=== PATIENT | female | born 1955 | race Caucasian/White ===

== ENCOUNTER 2018-07-15 19:28 | Emergency (ER) | payer MEDICARE ==
--- NOTE | 2018-07-15 19:38 | EDM.PDOC ---
ED HPI GENERAL MEDICAL PROBLEM - General Chief Complaint: Gastrointestinal Problem Stated Complaint: hemorrhoids Time Seen by Provider: 07/15/18 19:30 Source of Information: Reports: Patient, Family ([id number]), Old Records ( [facility] chart/EMR) History Limitations: Reports: No Limitations - History of Present Illness INITIAL COMMENTS - FREE TEXT/NARRATIVE: The patient was brought to the emergency room via private automobile by her [id number] for evaluation of 10/10 hemorrhoidal pain, which is refractory to to current medical therapy. She has had these hemorrhoids for more than a year with additional problems with chronic diarrhea during the last couple of years. She has been somewhat noncompliant with her routine medical care with distant EGD and colonoscopy as below and no previous workup for her chronic diarrhea. No recent history of abdominal pain, heartburn, nausea, melena, or any food intolerance, including fatty foods, etc., although occasional gross hematochezia secondary to her hemorrhoids. She is currently having about 10 bowel movements per day with additional problems with stool incontinence. The patient denies any chest pain/pressure, heart flutter, dizziness, orthostasis, orthopnea, diaphoresis, paresthesias, recent decreased exercise tolerance, or any other anginal-type symptoms. She denies any current gross hematuria, colic, or other UTI symptoms. The patient also denies any recent fever, significant cough, wheezing, dyspnea, etc.. Onset: Unknown/Unsure, Other (As above) Duration: Constant, Getting Worse Location: Denies: Head, Face, Neck, Chest, Abdomen, Back, Pelvis, Upper Extremity, Left, Upper Extremity, Right, Radiates to Quality: Reports: Same as Previous Episode, Sharp, Throbbing Severity: Severe Improves with: Reports: None Worsens with: Reports: None Context: Reports: Other (As above). Denies: Sick Contact, Trauma Associated Symptoms: Denies: Confusion, Chest Pain, Cough, Diaphoresis, Headaches, Loss of Appetite, Malaise, Nausea/Vomiting, Rash, Seizure, Shortness of Breath, Syncope, Weakness Treatments QUALITY SUPERVISOR: Reports: NSAIDS (As above), Other Medication(s) (As above) Rectal Pain Score (Numeric/FACES): 10 - Related Data Allergies Allergy/AdvReac Type Severity Reaction Status Date / Time beclomethasone Allergy Chest Verified 07/15/18 19:57 Presssure cyclobenzaprine Allergy Edema Verified 07/15/18 19:57 latex Allergy Redness Verified 07/15/18 19:57 lidocaine Allergy Anaphylactic Verified 07/15/18 19:57 Shock loperamide Allergy Rash Verified 07/15/18 19:57 peanut Allergy Throat Verified 07/15/18 19:57 swelling Sulfa (Sulfonamide Allergy Anaphylactic Verified 07/15/18 19:57 Antibiotics) Shock sumatriptan Allergy Nausea Verified 07/15/18 19:57 casting material fiberglass Allergy Edema Uncoded 07/15/18 19:57 METALS Allergy Itching Uncoded 07/15/18 19:57 Home Meds: Home Meds Sertraline HCl 200 mg PO QAM 03/26/13 [History] Levothyroxine [Synthroid] 50 mcg PO DAILY 10/15/14 [History] Albuterol/Ipratropium [DuoNeb 3.0-0.5 MG/3 ML] 3 ml NEB Q6HRRT PRN 11/08/14 [ History] Furosemide 20 mg PO BID 01/27/16 [History] Albuterol Sulfate [Proair Hfa] 2 puff INH Q6H PRN 01/14/17 [History] Doxepin HCl 150 mg PO BEDTIME 01/14/17 [History] Multivitamin [Multi-Vitamin Daily] 1 tab PO DAILY 01/14/17 [History] Hydrocortisone [Hydrocortisone 2.5% Crm] 1 applic RECTAL ASDIRECTED 07/15/18 [ History] Hydrocortisone [Preparation H] 1 applic PO ASDIRECTED 07/15/18 [History] Past Medical History HEENT History: Reports: Allergic Rhinitis, Cataract, Impaired Vision, Sinusitis , Other (See Below). Denies: Glaucoma, Hard of Hearing, Macular Degeneration, Retinal Detachment Other HEENT History: Patient wears reading glasses. Cardiovascular History: Reports: Other (See Below) Other Cardiovascular History: Bilateral lower extremity venous insufficiency with chronic dependent edema and current Lasix therapy Respiratory History: Reports: Bronchitis, Recurrent, COPD, Intubation, Previous , Pneumonia, Recurrent, Pulmonary Fibrosis, SOB, Other (See Below) Gastrointestinal History: Reports: Cholelithiasis, Chronic Diarrhea, Diverticulosis, Fecal Incontinence, Gastritis, GERD, Hemorrhoids, Irritable Bowel Syndrome. Denies: Celiac Disease, Inflammatory Bowel Disease Genitourinary History: Reports: Renal Calculus, Urinary Incontinence, Other ( See Below) Other Genitourinary History: Nephrolithiasis in 1988. Urinary stress incontinence. [employer] History: Reports: Dysfunctional Uterine Bleeding, Fibroids, : 3 Para: 4 LMP (Approximate): Other (See Below) Other [employer] History: Surgical menopause. One twin delivery by . History of right ovarian cysts. Musculoskeletal History: Reports: Arthritis, Back Pain, Chronic, Fracture, Neck Pain, Chronic, Osteoarthritis Other Musculoskeletal History: T3 and T5 vertebral body compression fractures. Neurological History: Reports: Headaches, Chronic, Migraines, Other (See Below) Other Neuro History: Chronic migraine and tension headaches. Psychiatric History: Reports: ADHD, Addiction (alcohol abuse in remission), Anxiety, Depression, Mood Swings, Psych Hospitalization(s), PTSD, Suicidal Ideation, Other (See Below) Other Psychiatric History: Previous inpatient treatment 2 at [facility] in [place] secondary to suicidal ideation in August 2006. PTSD secondary to witnessing her son's suicide as below. Endocrine/Metabolic History: Reports: Hypothyroidism Hematologic History: Reports: None Immunologic History: Reports: None Oncologic (Cancer) History: Reports: Cervix, Other (See Below) Other Oncologic History: Precancerous cervical dysplasia. Dermatologic History: Reports: None - Infectious Disease History Infectious Disease History: Reports: Chicken Pox, Measles, Mumps. Denies: C- Difficile, Shingles - Past Surgical History HEENT Surgical History: Reports: Cataract Surgery, Other (See Below) Other HEENT Surgeries/Procedures: Bilateral cataract surgery in 2014. Cardiovascular Surgical History: Reports: None Respiratory Surgical History: Reports: None GI Surgical History: Reports: Appendectomy, Cholecystectomy, Colonoscopy, EGD, Other (See Below) Other GI Surgeries/Procedures: Last EGD and colonoscopy on 01/31/16. Female Surgical History: Reports: Section, Cervical Conization, Hysterectomy, Other (See Below) Other Female Surgeries/Procedures: for delivery of twins. Partial hysterectomy with left-sided salpingo-oophorectomy secondary to dysfunctional uterine bleeding at age 23. Bladder suspensions 3 with last surgery on 10/23/02. Endocrine Surgical History: Reports: None Neurological Surgical History: Reports: None Musculoskeletal Surgical History: Reports: Knee Replacement, Shoulder Surgery, Other (See Below) Other Musculoskeletal Surgeries/Procedures:: Left-sided shoulder surgery in December 2002. Left knee TKA on 01/11/17. Oncologic Surgical History: Reports: None - Past Imaging History Past Imaging History: Reports: CAT Scan (CT of the abdomen and pelvis on with previous evaluation on 11/03/06.), Stress Testing (Cardiolite stress test on 04/14/02.), Ultrasound (Abdominal ultrasound on 11/12/06.) Social & Family History - Family History Cardiac: Reports: CAD, Cardiomyopathy, Heart Failure, [place], Pacemaker, Other (See Below) Other Cardiac Family History: Grandparents with history of CHF. MN in grandparents, parents, sister, and cousin. Father with history of pacemaker. Respiratory: Reports: Asthma, COPD, Other (See Below) Other Respiratory Family Hisory: Asthma in sister. COPD and mother and great aunt. GI: Reports: GERD, PUD, Other (See Below) Other GI Family History: Father with peptic ulcer disease. Musculoskeletal: Reports: Arthritis, Osteoarthritis, RA, Other (See Below) Other Musculoskeletal Family History: Father with rheumatoid arthritis. Psychiatric: Reports: Anxiety, Depression, Suicide Attempt, Other (See Below) Other Psychiatric Family History: Successful suicide attempt and son at age 17. - Tobacco Use Smoking Status *Q: Current Every Day Smoker Tobacco Use Within Last Twelve Months: Cigarettes Years of Tobacco use: 53 Packs/Tins Daily: 1 Packs/Tins Daily Comment: Started smoking at age 10 with maximum use of 2 packs per day. Used Tobacco, but Quit: No Smoking Cessation Information Provided To Patient: Yes Second Hand Smoke Exposure: Yes Source of Second Hand Smoke Exposure: Daughter. Second Hand Smoke Education Provided: Yes - Caffeine Use Caffeine Use: Reports: Coffee - Living Situation & Occupation Living situation: Reports: , with Family (, daughter) Occupation: Disabled (In 2009 secondary to her PTSD, etc.) ED ROS GENERAL - Review of Systems Review Of Systems: ROS reveals no pertinent complaints other than HPI. ED EXAM, GENERAL - Physical Exam Exam: See Below Exam Limited By: No Limitations General Appearance: Alert, WD/WN, No Apparent Distress, Anxious (Moderate) Head: Atraumatic, Normocephalic Neck: Normal Inspection, Supple, Non-Tender, Full Range of Motion. No: Lymphadenopathy (L), Lymphadenopathy (R), Thyromegaly Respiratory/Chest: No Respiratory Distress, No Accessory Muscle Use, Chest Non- Tender, Rhonchi (Occasional mild diffuse bilateral), Wheezing (Occasional mild diffuse bilateral). No: Rales, Pleural Rub, Retractions Cardiovascular: Normal Peripheral Pulses, Regular Rate, Rhythm, No Gallop, No JVD, No Murmur, No Rub. No: No Edema (Dependent edema as below), Gallop/S3, Gallop/S4, Friction Rub Peripheral Pulses: 2+: Radial (L), Radial (R) GI/Abdominal: Normal Bowel Sounds, Soft, Non-Tender, No Organomegaly, No Distention, No Abnormal Bruit, No Mass, Other (Obese). No: Guarding Rectal (Female) Exam: Normal Rectal Tone, Hemorrhoids (Large 11.5 cm prolapsed hemorrhoids 2 with no evidence of acute infection, significant thrombus, etc.) , Tenderness (Moderate to severe in the hemorrhoid region). No: Black Stool, Bloody Stool, Decreased Rectal Tone, Fecal Impaction, Perirectal Abscess, Rectal Fissure Back Exam: Normal Inspection, Full Range of Motion. No: CVA Tenderness (L), CVA Tenderness (R), Muscle Spasm Extremities: Normal Range of Motion, Non-Tender, Normal Capillary Refill, Pedal Edema (+1 bilateral pitting pedal/pretibial edema). No: Cuauhtemoc's Sign Neurological: Alert, Oriented, CN II-XII Intact, Normal Cognition, Normal Gait, No Motor/Sensory Deficits Psychiatric: Anxious (Moderate), Depressed Mood (Moderate with adequate eye contact) Skin Exam: Warm, Dry, Intact, Normal Color, No Rash, Wound/Incision (Bilateral pressure calluses with mild inflammation over the olecranon regions bilaterally) . No: Diaphoretic Lymphatic: No Adenopathy Course - Vital Signs Last Recorded V/S: Last Vital Signs Temp 36.9 C 07/15/18 19:30 Pulse 83 07/15/18 19:30 Resp 18 07/15/18 19:30 BP 147/78 H 07/15/18 19:30 Pulse Ox 94 L 07/15/18 19:30 Vital Signs - 24 hr 07/15/18 19:30 Temperature [ 36.9 C Temporal] Pulse, 83 Peripheral [ Pulse Oximetry] Respiratory 18 Rate Blood Pressure 147/78 H [Left Upper Arm ] O2 Sat by Pulse 94 L Oximetry - Orders/Labs/Meds Labs: None Meds: None - Radiology Interpretation Free Text/Narrative:: None Departure - Departure Time of Disposition: 20:35 Disposition: Home, Self-Care 01 Condition: Good Clinical Impression: Osteoarthritis, Hypothyroidism, Tobacco abuse counseling, COPD (chronic obstructive pulmonary disease), Mixed anxiety depressive disorder, Hemorrhoids, Chronic diarrhea - Discharge Information *PRESCRIPTION DRUG MONITORING PROGRAM REVIEWED*: Not Applicable *COPY OF PRESCRIPTION DRUG MONITORING REPORT IN PATIENT ARIK: Not Applicable Instructions: Chronic Obstructive Pulmonary Disease Exacerbation, [id number] , Steps to Quit Smoking, [id number], Hemorrhoids, Ilag-ui-Tead Referrals: Tiffanie Mccarthy MD [Primary Care Provider] - Forms: ED Department Discharge Additional Instructions: 1. Followup with your regular provider [facility] as directed for reevaluation and recommended preoperative history and physical for recommended hemorrhoidectomy in this facility. Bring these discharge instructions with you to that visit. 2. Manually reinsert your large hemorrhoids after every bowel movement as discussed with OTC Preparation H to be used as a lubricant. 3. Compliance with regular follow-up visits encouraged as discussed 4. Tylenol 650 mg by mouth every 4 hours and/or OTC ibuprofen 2-3 tabs by mouth every 6 hours with food as directed./needed. You may stagger these medications for 48-72 hours only, which essentially means that you are receiving a pain medication about every 2 hours. 5. Discuss your chronic diarrhea and stool incontinence with your regular provider with consideration of further workup, medication changes, etc. per their advice 6. Stop all tobacco use [facility] as directed/per provided information and consider contacting Quit LIne, etc.. 7. Immediately after this visit verify that your cellular telephone's voicemail has been activated and is empty. Also verify that your home telephone 's answering machine is operating properly and has space to receive messages. Note that it is sometimes necessary for us to be able to contact you at a later date to discuss your medical care. 8. Please remember that we are ALWAYS here for you and want to answer any questions you may have. Feel free to call the hospital any time and we call you back [facility]. - Problem List & Annotations (1) Hemorrhoids SNOMED Code(s): 56892578 Code(s): K64.9 - UNSPECIFIED HEMORRHOIDS Status: Acute Priority: High Annotation/Comment:: Large stage IV prolapsed internal hemorrhoids as above, which do require surgical repair. Symptomatic relief for now with recommended preoperative history and physical [facility] as per discharge instructions. Excellent results with reduction of prolapsed hemorrhoids during this visit, including significant reduction of her pain and discomfort at time of discharge. Qualifiers: Hemorrhoid type: fourth degree Qualified Code(s): K64.3 - Fourth degree hemorrhoids (2) Chronic diarrhea SNOMED Code(s): 894861495 Code(s): K52.9 - NONINFECTIVE GASTROENTERITIS AND COLITIS, UNSPECIFIED Status: Chronic Priority: High Annotation/Comment:: Note history of chronic diarrhea, which is worsened during the last couple of years including stool incontinence, etc. as above. Patient did have a EGD and colonoscopy in January 2016 as above with diverticulosis noted at that time. Patient advised to initiate a food and stool diary with additional workup advisable, including probable stool cultures, etc. as per discharge instructions. (3) COPD (chronic obstructive pulmonary disease) SNOMED Code(s): 61209222 Code(s): J44.9 - CHRONIC OBSTRUCTIVE PULMONARY DISEASE, UNSPECIFIED Status : Chronic Priority: Medium Annotation/Comment:: Chronic nonspecific smoker' s cough with the recent fever or other true bronchitic type symptoms. Consider PFTs depending on her clinical course. Qualifiers: COPD type: emphysema Emphysema type: panlobular Qualified Code(s): J43.1 - Panlobular emphysema (4) Tobacco abuse counseling SNOMED Code(s): 840468222, 761706045, 692543973 Code(s): Z71.6 - TOBACCO ABUSE COUNSELING Status: Chronic Priority: Medium Annotation/Comment:: Tobacco cessation both for the patient and her family strongly encouraged the patient apparently already having tobacco cessation information at home. (5) Hypothyroidism SNOMED Code(s): 33416133 Code(s): E03.9 - HYPOTHYROIDISM, UNSPECIFIED Status: Chronic Priority: Medium Annotation/Comment:: Currently under supplementation. She is currently noncompliant with her routine follow-up care with updated yearly blood work, etc. recommended with H&P as per discharge instructions. Qualifiers: Hypothyroidism type: acquired Qualified Code(s): E03.9 - Hypothyroidism, unspecified (6) Osteoarthritis SNOMED Code(s): 873054157 Code(s): M19.90 - UNSPECIFIED OSTEOARTHRITIS, UNSPECIFIED SITE Status: Chronic Priority: Medium Annotation/Comment:: Stable by history with current medical therapy. Qualifiers: Osteoarthritis location: multiple joints Osteoarthritis type: primary Qualified Code(s): M15.0 - Primary generalized (osteo)arthritis (7) Mixed anxiety depressive disorder SNOMED Code(s): 362664524 Code(s): F41.8 - OTHER SPECIFIED ANXIETY DISORDERS Status: Chronic Priority: Medium Annotation/Comment:: Moderate control based on today's exam. Continue to observe closely by her regular provider. Note history of PTSD as above. - Problem List Review Problem List Initiated/Reviewed/Updated: Yes - Assessment/Plan Assessment:: As above Plan: As above. Extensive precautions were given to the patient and her daughter-in- law, who are in agreement with the treatment plan. See Patient Instructions for further treatment and plan.
[2018-07-15 20:06] VITALS: BP 147/78
== END 2018-07-15 20:35 | disposition home or self-care (01) ==
LOC: LL.ED 19:28
DX: K64.9 Unspecified hemorrhoids (principal); K52.9 Noninfective gastroenteritis and colitis, unspecified; J44.9 Chronic obstructive pulmonary disease, unspecified; Z71.6 Tobacco abuse counseling; M19.90 Unspecified osteoarthritis, unspecified site; F41.8 Other specified anxiety disorders; E03.9 Hypothyroidism, unspecified; F17.210 Nicotine dependence, cigarettes, uncomplicated; Z88.2 Allergy status to sulfonamides; Z88.8 Allergy status to other drugs, medicaments and biological substances; Z79.899 Other long term (current) drug therapy
CPT/HCPCS: 99282; 99283

== ENCOUNTER → 2018-08-08 | Day surgery (SDC) | payer MEDICARE ==
[~2018-08-08] MED LIST: Albuterol/Ipratropium 3.0-0.5 MG/3 ML Neb Soln NEB ONE; Lactated Ringers 1,000 ML IV SCH; Midazolam 1 MG/ML 2 ML SDV ONE; Propofol 200 MG/20 ML SDV ONE; Sodium Chloride 0.9% 10 ML Syringe FLUSH PRN
[2018-08-08 10:24] VITALS: BP 121/79
--- NOTE | 2018-08-08 10:57 | PCM.PN ---
- General Info Date of Service: 08/08/18 - Review of Systems Systems Review Comment:: 63-year-old female here for colonoscopy. She has been having some symptoms of diarrhea and rectal bleeding. She is medically stable to proceed today. Colonoscopy as well as probable hemorrhoid banding are planned. These procedures are again discussed with the patient. Her questions were answered and she agrees to proceed. Her recent history and physical is reviewed and no significant changes are noted. - Patient Data Vitals - Most Recent: Last Vital Signs Temp Pulse 78 08/08/18 10:23 Resp 18 08/08/18 10:23 BP 121/79 08/08/18 10:23 Pulse Ox 92 L 08/08/18 10:23 Weight - Most Recent: 63.503 kg Med Orders - Current: Current Medications Albuterol/Ipratropium (Duoneb 3.0-0.5 Mg/3 Ml) 3 ml NEB ONETIME ONE Stop: 08/08/18 10:54 Lactated Ringer's (Ringers, Lactated) 1,000 mls @ 125 mls/hr IV ASDIRECTED MITRA Last Admin: 08/08/18 10:26 Dose: 125 mls/hr Sodium Chloride (Saline Flush) 10 ml FLUSH ASDIRECTED PRN PRN Reason: Keep Vein Open Discontinued Medications Midazolam HCl (Versed 1 Mg/Ml) Confirm Administered Dose 2 mg .ROUTE .STK-MED ONE Stop: 08/08/18 08:21 Propofol (Diprivan 20 Ml) Confirm Administered Dose 200 mg .ROUTE .STK-MED ONE Stop: 08/08/18 08:22 - Problem List Review Problem List Initiated/Reviewed/Updated: Yes - My Orders Last 24 Hours: My Active Orders 08/08/18 08:30 Patient Status [ADT] Routine Peripheral IV Care [RC] . DIRECTED Verify Patient Consent Obtain [RC] ASDIRECTED Lactated Ringers [Ringers, Lactated] 1,000 ml IV ASDIRECTED Sodium Chloride 0.9% [Saline Flush] 10 ml FLUSH ASDIRECTED PRN Peripheral IV Insertion Adult [OM.PC] Routine - Assessment Assessment:: Diarrhea Rectal Bleeding hemorrhoids - Plan Plan:: Colonoscopy with possible hemorrhoid banding
--- NOTE | 2018-08-08 11:53 | PCM.OPNOTE ---
- General Post-Op/Procedure Note Date of Surgery/Procedure: 08/08/18 Operative Procedure(s): Colonoscopy with Biopsy and Hemorrhoid Banding Findings: Large prolapsing internal hemorrhoids Sigmoid Diverticulosis Pre Op Diagnosis: Diarrhea. Hemorrhoids Post-Op Diagnosis: Prolapsing Internal hemorrhoids. Sigmoid Diverticulosis Anesthesia Technique: [facility] [place] Surgeon: Shahriar Jarvis Pathology: Random Colon Biopsies Output, Urine Amount: 0 EBL in mLs: 3 Complications: None Condition: Good
--- NOTE | 2018-08-08 14:30 | OR ---
Date of Procedure: 08/08/2018 PREOPERATIVE DIAGNOSES: Diarrhea, hemorrhoids, and rectal bleeding. POSTOPERATIVE DIAGNOSES: Sigmoid diverticulosis and prolapsing internal hemorrhoids. OPERATIONS PERFORMED: Colonoscopy with biopsy and hemorrhoid banding. INDICATIONS FOR SURGERY: This 63-year-old female has been having difficulty with unexplained diarrhea and some prolapsing hemorrhoids as well as some associated bleeding. She comes now for colonoscopy and possible hemorrhoid banding. FINDINGS: In the patient's colon, she has a moderate degree of sigmoid diverticulosis. This does not appear to be acutely inflamed, or otherwise, complicated. The remainder of the colon appears normal. She did have large prolapsing internal hemorrhoids primarily on her left side and posteriorly. DESCRIPTION OF PROCEDURE: The patient was taken to the operating room. She was given intravenous sedation, and with her in the left lateral decubitus position, digital rectal exam was performed showing no rectal masses. The prolapsing hemorrhoids were noted on digital exam, but these were able to be easily manually reduced. The Olympus colonoscope was inserted into the rectum. Retroflexed examination of the rectal canal was performed. The scope was then carefully advanced under direct visualization through the entire length of the colon until the cecum was reached. The colon was somewhat tortuous, but with persistent careful manipulation, the cecum was able to be safely reached. The light was noted to transilluminate the abdominal wall in the right lower quadrant. The ileocecal valve and appendiceal orifice were also viewed. After examining the cecum, the scope was slowly withdrawn sequentially re-examining the colonic segments. During withdrawal of the scope, random biopsies were taken of the colonic mucosa on both the right and left sides. After the exam had been completed, the colonoscope was removed, and the anoscope was inserted identifying the large hemorrhoids. Bands were placed on 2 hemorrhoids, one on the patient's left side and one posteriorly. Good purchase of the hemorrhoid tissue was achieved with the bands. The patient was then taken from the operating room in satisfactory condition. ESTIMATED BLOOD LOSS: 4 mL. COMPLICATIONS: None. PROGNOSIS: Good. MICHAEL Jarvis MD /[id number]
== END | disposition home or self-care (01) ==
LOC: LL.SDS 09:48
PROVIDERS: ATTEND Surgery
DX: K57.30 Diverticulosis of large intestine without perforation or abscess without bleeding (principal); K64.8 Other hemorrhoids; J44.9 Chronic obstructive pulmonary disease, unspecified; F41.9 Anxiety disorder, unspecified; F32.9 Major depressive disorder, single episode, unspecified; F17.210 Nicotine dependence, cigarettes, uncomplicated; Z79.899 Other long term (current) drug therapy; Z88.4 Allergy status to anesthetic agent; Z88.2 Allergy status to sulfonamides; Z91.040 Latex allergy status; Z88.8 Allergy status to other drugs, medicaments and biological substances
CPT/HCPCS: 00812; 45380; 45398; 94640; J2250; J2704; J7120; 88305; J7620-GY